=== PATIENT | male | born 1995 | race Caucasian/White ===

== ENCOUNTER 2016-12-09 15:31 | Emergency (ER) | payer BC, OTHER ==
[2016-12-09 16:18] VITALS: BP 128/55
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
== END 2016-12-09 17:00 | disposition home or self-care (01) ==
LOC: UCEAST 15:31
DX: S09.92XA Unspecified injury of nose, initial encounter (principal); S20.419A Abrasion of unspecified back wall of thorax, initial encounter; S40.212A Abrasion of left shoulder, initial encounter; S40.211A Abrasion of right shoulder, initial encounter; S10.91XA Abrasion of unspecified part of neck, initial encounter; S06.0X9A Concussion with loss of consciousness of unspecified duration, initial encounter; M26.69 Other specified disorders of temporomandibular joint; S09.93XA Unspecified injury of face, initial encounter; Y04.2XXA Assault by strike against or bumped into by another person, initial encounter; Y93.9 Activity, unspecified; Y92.9 Unspecified place or not applicable; F17.210 Nicotine dependence, cigarettes, uncomplicated
CPT/HCPCS: 99211; G0463

== ENCOUNTER 2016-12-10 01:46 | Emergency (ER) | payer BC ==
[2016-12-10] MEDS ORDERED: Ondansetron ODT TAB* 4 MG PO ONE (05:47)
[2016-12-10] MEDS ORDERED: HYDROcodone/ACETAMIN 5-325 MG* 1 TAB PO ONE (05:47)
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
[2016-12-10 08:14] VITALS: BP 126/74
--- NOTE | 2016-12-10 08:28 | RAD ---
INDICATION: Head injury. COMPARISON: There are no prior studies available for comparison. TECHNIQUE: Contiguous axial sections of the brain were obtained from the skull base to the vertex without contrast. FINDINGS: The ventricles, cisterns and sulci are within normal limits. There are small areas of decreased attenuation present in the subcortical white matter in the right frontal and parietal lobes. No mass effect is present. There is no evidence for hemorrhage. No significant focal osseous abnormality is seen. The visualized portion of the paranasal sinuses and mastoid air cells appear clear. IMPRESSION: 1. NO EVIDENCE FOR ACUTE FINDING. 2. SMALL SUBCORTICAL AREAS OF DECREASED ATTENUATION IN THE SUBCORTICAL WHITE MATTER IN THE RIGHT FRONTAL AND PARIETAL LOBES RECOMMEND A FOLLOW-UP MRI OF THE BRAIN WITHOUT AND WITH CONTRAST FOR FURTHER CHARACTERIZATION.
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
--- NOTE | 2016-12-10 08:40 | RAD ---
INDICATION: Neck pain. Injury. COMPARISON: None TECHNIQUE: Noncontrast axial source images was performed from the skull base to the thoracic inlet. Coronal and and sagittal reformatted images were generated. FINDINGS: Vertebrae: There is no fracture or acute focal bony lesion. Alignment: The craniocervical junction appears normal. The cervical vertebrae are normally aligned. Central Canal: There are no significant CT abnormalities of the central canal or foramina. MR imaging is a more sensitive method to evaluate the canal and foramina. Intervertebral disc spaces: The disc spaces are maintained. Brain: The visualized brain appears unremarkable. Soft tissues: The visualized soft tissue elements of the neck are unremarkable. The prevertebral soft tissues appear normal. The lung apices are clear. IMPRESSION: NEGATIVE EXAMINATION.
== END 2016-12-10 08:13 | disposition home or self-care (01) ==
LOC: ED 01:46
DX: S06.0X9A Concussion with loss of consciousness of unspecified duration, initial encounter (principal); R51 Headache; M54.2 Cervicalgia; F17.210 Nicotine dependence, cigarettes, uncomplicated; W50.0XXA Accidental hit or strike by another person, initial encounter; Y93.9 Activity, unspecified; Y92.9 Unspecified place or not applicable; T70.29XA Other effects of high altitude, initial encounter
CPT/HCPCS: 70450; 70486; 72125; 99282; A9270-GY